=== PATIENT | female | born 1950 | race American Indian/Alaskan Native ===

== ENCOUNTER 2018-07-25 12:16 | Emergency (ER) | payer MEDICARE, OTHER ==
[2018-07-25 12:30] VITALS: TEMP 97.6
[2018-07-25 14:10] LABS: BASO # 0.2 K/uL (0.0-0.2); BASO % 1.6 % (0.0-2.0); EOS # 0.1 K/uL (0.0-0.7); HEMOGLOBIN 14.4 g/dL (12.0-16.0); LYMPH # 1.7 K/uL (1.0-4.3); LYMPH % 16.1 % (20.0-40.0); MEAN CELL VOLUME 84.8 fl (81.0-99.0); MEAN CORPUSCULAR HEMOGLOBIN 27.1 pg (27.0-31.0); MEAN PLATELET VOLUME 9.1 fl (7.2-11.7); MONO # 0.7 K/uL (0.0-0.8); MONO % 6.7 % (0.0-10.0); NEUT # 7.9 K/uL (1.8-7.0); NEUT % 74.6 % (50.0-75.0); RBC 5.32 Mil/uL (3.80-5.20); RED CELL DISTRIBUTION WIDTH 17.4 % (11.5-14.5); WHITE BLOOD COUNT 10.5 K/uL (4.8-10.8)
[2018-07-25 14:12] LABS: VENOUS BLOOD GAS PCO2 67 mmHg (40-60); VENOUS BLOOD GAS PO2 25 mm/Hg (30-55); VENOUS BLOOD PH 7.33 (7.32-7.43)
[2018-07-25 14:15] LABS: PROTHROMBIN TIME 11.1 Seconds (9.8-13.1)
[2018-07-25 14:18] LABS: PARTIAL THROMBOPLASTIN TIME 28.8 Seconds (25.6-37.1)
[2018-07-25 14:27] LABS: BLOOD UREA NITROGEN 13 mg/dl (7-17); CALCIUM 9.4 mg/dL (8.4-10.2); GFR NON-AFRICAN AMERICAN > 60
[2018-07-25 14:38] LABS: B-TYPE NATRIURETIC PEPTIDE 91.8 pg/ml (0-900)
--- NOTE | 2018-07-25 14:38 | RAD ---
Date of service: 07/25/2018 HISTORY: possible admission COMPARISON: Chest radiograph dated 06/19/2015. FINDINGS: LUNGS: Low lung volumes. No active pulmonary disease. PLEURA: No significant pleural effusion identified, no pneumothorax apparent. CARDIOVASCULAR: Normal. OSSEOUS STRUCTURES: Unchanged. VISUALIZED UPPER ABDOMEN: Normal. OTHER FINDINGS: None. IMPRESSION: No active disease.
[2018-07-25 14:52] VITALS: O2SAT 98
--- NOTE | 2018-07-25 14:59 | ED PDOC ---
HPI: Chest Pain Time Seen by Provider: 07/25/18 13:09 Chief Complaint (Nursing): Shortness Of Breath Chief Complaint (Provider): Chest Pain History Per: Patient History/Exam Limitations: no limitations Onset/Duration Of Symptoms: Days (x1) Current Symptoms Are (Timing): Still Present Additional Complaint(s): 45 year old female, with a past medical history of diabetes, COPD, and HTN, presenting for evaluation of feeling of racing heart and chest pain since this morning. Patient states for the last couple of weeks shes been having these symptoms on and off. She reports following up with her PMD, Dr. Gates, where she had a cardiac echo, but is unsure of the results. Patient also reports that since starting her hypertension medications 2 weeks ago, she has experienced left calf pain and swelling. Patient states she had an US of the leg, but is unsure of the results. Otherwise, patient states she is compliant with her medications and follow up visits. Patient denies any fevers, coughs, nausea, vomiting, and known allergies. PMD: Dr. Gates Past Medical History Reviewed: Historical Data, Nursing Documentation, Vital Signs Vital Signs: Last Vital Signs Temp 97.6 F 07/25/18 12:20 Pulse 89 07/25/18 17:17 Resp 19 07/25/18 17:17 BP 127/64 07/25/18 17:17 Pulse Ox 98 07/25/18 17:17 - Medical History PMH: Asthma, COPD, Diabetes, HTN, Hypothyroidism Denies: HIV - Surgical History Surgical History: - Family History Family History: States: Unknown Family Hx - Home Medications Home Medications: Ambulatory Orders Medication Instructions Recorded RX: Levothyroxine [Synthroid] 100 mcg PO DAILY 06/19/15 RX: Rifaximin [Xifaxan] 550 mg PO DAILY 06/19/15 Ergocalciferol (Vitamin D2) 50,000 iu PO QWK #4 cap 06/20/15 [Vitamin D] Metformin Hydrochloride/Mindi 1 ter PO QD7 #0 ter 06/20/15 [Janumet Xr 1000 mg-50 mg] Promethazine [Phenergan Syrup] 5 ml PO Q6H #0 dose 06/20/15 oxyCODONE/Acetaminophen [Percocet 1 tab PO Q6 PRN #20 tab 05/18/16 5/325 mg Tab] - Allergies Allergies/Adverse Reactions: Allergies Allergy/AdvReac Type Severity Reaction Status Date / Time No Known Allergies Allergy Verified 06/19/15 04:23 Review of Systems ROS Statement: Except As Marked, All Systems Reviewed And Found Negative Constitutional: Negative for: Fever Cardiovascular: Positive for: Chest Pain Respiratory: Negative for: Cough Gastrointestinal: Negative for: Nausea, Vomiting Musculoskeletal: Positive for: Leg Pain (left calf) Physical Exam - Reviewed Nursing Documentation Reviewed: Yes Vital Signs Reviewed: Yes - Physical Exam Appears: Positive for: Well (pleasant, sitting on stretcher), Non-toxic, No Acute Distress Head Exam: Positive for: ATRAUMATIC, NORMAL INSPECTION, NORMOCEPHALIC Skin: Positive for: Normal Color, Warm, Dry. Negative for: Rash Eye Exam: Positive for: EOMI, Normal appearance, PERRL ENT: Positive for: Normal ENT Inspection Neck: Positive for: Normal, Painless ROM, Supple Cardiovascular/Chest: Positive for: Regular Rate, Rhythm. Negative for: Murmur Respiratory: Positive for: Normal Breath Sounds (clear to auscultation). Nega tive for: Respiratory Distress Gastrointestinal/Abdominal: Positive for: Normal Exam, Soft. Negative for: Tenderness Back: Positive for: Normal Inspection. Negative for: L CVA Tenderness, R CVA Tenderness Extremity: Positive for: Normal ROM, Calf Tenderness (left calf mildly swollen compared to right with 1+ pitting edema; (+) pain on left calf squeeze; (-) pain on right calf squeeze) Neurologic/Psych: Positive for: Alert, Oriented. Negative for: Motor/Sensory Deficits - Laboratory Results Result Diagrams: 07/25/18 13:10 07/25/18 13:10 - ECG O2 Sat by Pulse Oximetry: 98 (RA) Pulse Ox Interpretation: Normal Medical Decision Making Medical Decision Makin Plan: Workup for cardiac vs pulmonary etiology of chest pain. DVT US study ordered based on exam, cardiac risk factors, and DVT risk factors. Will reassess patient. Pt with BL LE ultrasound normal. Troponin WNL. EKG NSR and unchanged. CT chest shows no signs of PE. Pt will follow up with PMD and captain of guards. Pt encouraged to continue taking home medications as prescribed by PMD. Return parameters discussed with the patient. Scribe Attestation: Documented by Blane Crockett, acting as a scribe for Halle Vinson MD. Provider Scribe Attestation: All medical record entries made by the Scribe were at my direction and personally dictated by me. I have reviewed the chart and agree that the record accurately reflects my personal performance of the history, physical exam, medical decision making, and the department course for this patient. I have also personally directed, reviewed, and agree with the discharge instructions and disposition. Disposition - Clinical Impression Clinical Impression: Palpitations, Atypical chest pain - Disposition Disposition: Routine/Home Disposition Time: 19:07 Condition: IMPROVED Additional Instructions: Follow up with primary medical doctor and captain of guards regarding palpitations. Your EKGs, chest xray, cat-scan, and leg vein studies showed not abnormality suggesting no new heart problems, no blood clots in the legs, and no pulmonary embolism. If symptoms return including chest pain, trouble breathing, fever, swelling or other new symptoms, please return to the emergency department. Instructions: Chest Pain That Is Not Caused by the Heart (DC), Chest Pain (DC), Palpitations (DC) Forms: [employer] (Bulgarian)
[2018-07-25 15:03] VITALS: RESP 19
--- NOTE | 2018-07-25 16:05 | US ---
Date of service: 07/25/2018 PROCEDURE: Bilateral lower extremity venous duplex Doppler. HISTORY: leg pain with CP and tachycardia COMPARISON: None available. TECHNIQUE: Bilateral common femoral, superficial femoral, popliteal and posterior tibial veins were evaluated. Flow was assessed with color Doppler, compressibility, assessment of phasic flow and augmentation response. FINDINGS: COMMON FEMORAL VEIN: Right CFV: Unremarkable. Left CFV: Unremarkable. SUPERFICIAL FEMORAL VEIN: Right SFV: Unremarkable. Left SFV: Unremarkable. POPLITEAL VEIN: Right Popliteal: Unremarkable. Left Popliteal: Unremarkable. POSTERIOR TIBIAL VEIN: Right PTV: Unremarkable. Left PTV: Unremarkable. OTHER FINDINGS: None. IMPRESSION: No evidence of deep venous thrombosis.
[2018-07-25] MEDS ORDERED: Sodium Chloride 0.9% 50 ML IV ONE (16:43)
[2018-07-25] MEDS ORDERED: Iodixanol 320 MG/ML 100 ML BOTTLE IV ONE (16:43)
[2018-07-25 17:18] VITALS: BP 127/64; PULSE 89
--- NOTE | 2018-07-25 18:43 | CT ---
Date of service: 07/25/2018 PROCEDURE: CT Chest with contrast (Pulmonary Angiogram) HISTORY: sob, palpitations, tachycardia COMPARISON: CT angiography of the pulmonary arteries performed 01/19/2011. TECHNIQUE: Axial computed tomography images were obtained of the chest in the pulmonary arterial phase of enhancement. Coronal and sagittal reformatted images were created and reviewed. Intravenous contrast dose: 95 mL Visipaque 320 Radiation dose: Total exam DLP = 304.0 mGy-cm. This CT exam was performed using one or more of the following dose reduction techniques: Automated exposure control, adjustment of the mA and/or kV according to patient size, and/or use of iterative reconstruction technique. FINDINGS: PULMONARY ARTERIES: Suboptimal opacification of the pulmonary arteries. No gross central pulmonary embolism. AORTA: No acute findings. Common origin of the brachiocephalic and left common carotid arteries. No thoracic aortic aneurysm. LUNGS: Unremarkable. No nodule, mass or pulmonary consolidation. PLEURAL SPACES: Unremarkable. No effusion or pneumothorax. HEART: Unremarkable. No cardiomegaly. No significant pericardial effusion. LYMPH NODES: No lymphadenopathy. BONES, CHEST WALL: Unremarkable. No fracture or destructive lesion OTHER FINDINGS: Unremarkable. IMPRESSION: Suboptimal opacification of the pulmonary arteries. No gross central pulmonary embolism. No focal consolidation or pleural effusion.
--- NOTE | 2018-07-25 23:02 | CARD ---
APPROVED REPORT Date of service: 07/25/2018 EKG Measurement Heart [id number] <Conclusion> Sinus tachycardia with premature atrial complexes Otherwise normal ECG
== END 2018-07-25 19:29 | disposition home or self-care (01) ==
LOC: H.ER 12:16
DX: R00.2 Palpitations (principal); R07.9 Chest pain, unspecified; E11.9 Type 2 diabetes mellitus without complications; I10 Essential (primary) hypertension; J44.9 Chronic obstructive pulmonary disease, unspecified; E03.9 Hypothyroidism, unspecified
CPT/HCPCS: 71045; 71275; 80048; 82803; 83880; 84484; 85025; 85610; 85730; 86850; 86900; 93005; 93970; 96374; 99284; J2405; Q9967

== ENCOUNTER 2018-10-15 10:29 | Inpatient (IN) | payer MEDICARE, OTHER ==
[2018-10-15 10:43] VITALS: BMI 44.6
--- NOTE | 2018-10-15 11:12 | ED PDOC ---
HPI: SOB/CHF/COPD Time Seen by Provider: 10/15/18 10:50 Chief Complaint (Provider): Cough, chest pain History Per: Patient History/Exam Limitations: no limitations Onset/Duration Of Symptoms: Other (over a week) Current Symptoms Are (Timing): Still Present Additional Complaint(s): 67 year old female, with a past medical history of COPD and asthma, presents to the ED complaining of cough, chest pain, and right sided back pain. Patient reports worsening of symptoms. She states she saw her doctor for symptoms and was prescribed cough medicine and trelegy for COPD. Denies calf pain, fever, smoking, recent travel, or prolonged bus or plane ride. PMD: Dr. Baires Past Medical History Reviewed: Historical Data, Nursing Documentation, Vital Signs Vital Signs: Last Vital Signs Temp 96 F L 10/15/18 10:41 Pulse 103 H 10/15/18 10:41 Resp BP 120/81 10/15/18 10:41 Pulse Ox 95 10/15/18 10:41 - Medical History PMH: Asthma, COPD, Diabetes, HTN, Hypothyroidism Denies: HIV - Surgical History Surgical History: Other surgeries: Thydroidectomy - Family History Family History: States: Unknown Family Hx - Social History Current smoker - smoking cessation education provided: No - Home Medications Home Medications: Ambulatory Orders Medication Instructions Recorded Levothyroxine [Synthroid] 100 mcg PO DAILY 06/19/15 Ergocalciferol (Vitamin D2) 50,000 iu PO QWK #4 cap 06/20/15 [Vitamin D] Cyanocobalamin (Vitamin B-12) 500 mcg PO DAILY 10/15/18 [Vitamin B-12] Fluticasone/Umeclidin/Vilanter 1 puff PO BID PRN 10/15/18 [Trelegy Ellipta 100-62.5-25] - Allergies Allergies/Adverse Reactions: Allergies Allergy/AdvReac Type Severity Reaction Status Date / Time No Known Allergies Allergy Verified 06/19/15 04:23 Review of Systems ROS Statement: Except As Marked, All Systems Reviewed And Found Negative Constitutional: Negative for: Fever Cardiovascular: Positive for: Chest Pain Respiratory: Positive for: Cough, Wheezing Musculoskeletal: Positive for: Back Pain (right sided). Negative for: Other (calf pain) Physical Exam - Reviewed Nursing Documentation Reviewed: Yes Vital Signs Reviewed: Yes - Physical Exam Appears: Positive for: In Acute Distress (mild acute distress and anxious) Head Exam: Positive for: ATRAUMATIC, NORMOCEPHALIC Skin: Positive for: Normal Color, Warm, Dry Eye Exam: Positive for: Normal appearance Neck: Positive for: Normal, Painless ROM Cardiovascular/Chest: Positive for: Regular Rate, Rhythm Respiratory: Positive for: Other (Shallow breath). Negative for: Wheezing, Respiratory Distress Gastrointestinal/Abdominal: Positive for: Normal Exam, Soft. Negative for: Tenderness Extremity: Negative for: Pedal Edema, Swelling Neurologic/Psych: Positive for: Alert. Negative for: Motor/Sensory Deficits - Laboratory Results Result Diagrams: 10/15/18 12:07 10/15/18 12:40 - ECG O2 Sat by Pulse Oximetry: 95 (RA) Pulse Ox Interpretation: Normal Medical Decision Making Medical Decision Making: Initial Impression: Asthma, COPD exacerbation Initial Plan: --ECG --CMP --CBC --Chest X-ray --Albuterol 3mL INH --Peak flow Scribe Attestation: Documented by Lance Silva acting as a scribe for Alissa Cronin MD. Provider Scribe Attestation: All medical record entries made by the Scribe were at my direction and personally dictated by me. I have reviewed the chart and agree that the record accurately reflects my personal performance of the history, physical exam, medical decision making, and the department course for this patient. I have also personally directed, reviewed, and agree with the discharge instructions and disposition. patient still coughing and has decreased air entry. Case d/w Dr. Baires. Advised that patient would likely benefit from at least 2 nights of admission. Disposition - Clinical Impression Clinical Impression: COPD (chronic obstructive pulmonary disease), Asthma exacerbation - Patient ED Disposition Is Patient to be Admitted: Yes Doctor Will See Patient In The: Hospital - Disposition Disposition: Transfer of Care Disposition Time: 13:10 Condition: FAIR - Pt Status Changed To: Hospital Disposition Of: Inpatient - Admit Certification Admit to Inpatient:: After my assessment, the patient will require hospitalization for at least two midnights. This is because of the severity of symptoms shown, intensity of services needed, and/or the medical risk in this p atient being treated as an outpatient. - POA Present On Arrival: None
[2018-10-15] MEDS ORDERED: Albuterol-Ipratrop 3 mg / 0.5 (3 ml) UD INH ONE ×4 (11:15→15:00)
[2018-10-15] MEDS ORDERED: Albuterol-Ipratrop 3 mg / 0.5 (3 ml) UD ONE (11:51)
[2018-10-15 12:11] LABS: BASO # 0.1 K/uL (0.0-0.2); BASO % 0.6 % (0.0-2.0); EOS # 0.1 K/uL (0.0-0.7); EOS % 1.3 % (0.0-4.0); LYMPH # 1.3 K/uL (1.0-4.3); LYMPH % 13.3 % (20.0-40.0); MEAN CELL VOLUME 83.9 fl (81.0-99.0); MEAN CORPUSCULAR HEMOGLOBIN 26.7 pg (27.0-31.0); MEAN CORPUSCULAR HGB CONC 31.8 g/dL (33.0-37.0); MEAN PLATELET VOLUME 8.8 fl (7.2-11.7); MONO # 0.5 K/uL (0.0-0.8); MONO % 4.9 % (0.0-10.0); NEUT # 7.8 K/uL (1.8-7.0); NEUT % 79.9 % (50.0-75.0); NRBC % 0.1 % (0.0-0.0); RBC 5.25 Mil/uL (3.80-5.20); RED CELL DISTRIBUTION WIDTH 17.9 % (11.5-14.5); WHITE BLOOD COUNT 9.8 K/uL (4.8-10.8)
[2018-10-15 12:58] LABS: ALBUMIN 3.9 g/dL (3.5-5.0); ALT/SGPT 21 U/L (9-52); AST/SGOT 27 U/L (14-36); BLOOD UREA NITROGEN 11 mg/dl (7-17); CALCIUM 9.2 mg/dL (8.4-10.2); GFR NON-AFRICAN AMERICAN > 60
[2018-10-15] MEDS ORDERED: Albuterol-Ipratrop 3 mg / 0.5 (3 ml) UD INH STA (14:50)
--- NOTE | 2018-10-15 16:39 | RAD ---
Date of service: 10/15/2018 HISTORY: cough COMPARISON: Chest radiograph 07/25/2018. FINDINGS: LUNGS: Low pulmonary volume reiterated. No acute infiltrate bilaterally. PLEURA: No significant pleural effusion identified, no pneumothorax apparent. CARDIOVASCULAR: No aortic atherosclerotic calcification present. Normal cardiac size. No pulmonary vascular congestion. OSSEOUS STRUCTURES: No significant abnormalities. VISUALIZED UPPER ABDOMEN: Normal. OTHER FINDINGS: None. IMPRESSION: No interval acute cardiopulmonary disease appreciated.
[2018-10-15] MEDS: Albuterol-Ipratrop 3 mg / 0.5 (3 ml) UD INH SCH (19:11)
[2018-10-15] MEDS: Insulin Lispro (humaLOG) 100 Units/ml Inj SC SCH (22:11)
[2018-10-16] MEDS: Albuterol-Ipratrop 3 mg / 0.5 (3 ml) UD INH SCH ×4 (01:02→19:17)
[2018-10-16] MEDS: Levothyroxine 100 MCG TAB PO SCH (05:32)
[2018-10-16] MEDS: Insulin Lispro (humaLOG) 100 Units/ml Inj SC SCH ×4 (09:20→22:00)
[2018-10-16] MEDS: CYANOCOBALAMIN 500 MCG TAB PO SCH (09:22)
[2018-10-16] MEDS: Promethazine DM 12.5 mg-30 mg/10 ml Syrup PO PRN (09:25)
--- NOTE | 2018-10-16 10:50 | CP.PCM.PN ---
Subjective - Date & Time of Evaluation Date of Evaluation: 10/16/18 Time of Evaluation: 10:53 - Subjective Subjective: 67 YR OLD OBESE FEMALE WHO IS REFERRED FOR PULMONARY EVALUATION BECAUSE OF SHORTNESS OF BREATH WITH PLEURITIC CHEST PAINS X SEVERAL DAYS.SHE BLAMES SYMPTOMS ON RECENT FLU SHOT AND CHANGE OF BLOOD PRESSURE MEDS. PT HAS A HISTORY OF HYPOTHYROIDISM,COPD AND HYPERTENSION Objective - Vital Signs/Intake and Output Vital Signs (last 24 hours): Temp Pulse Resp BP Pulse Ox 97.6 F 83 20 141/84 97 10/16/18 08:21 10/16/18 08:21 10/16/18 08:21 10/16/18 09:18 10/16/18 08:21 - Medications Medications: Current Medications Albuterol/Ipratropium (Duoneb 3 Mg/0.5 Mg (3 Ml) Ud) 3 ml INH RQ6 [facility] Last Admin: 10/16/18 07:03 Dose: 3 ml Cyanocobalamin (Vitamin B12) 500 mcg PO DAILY [facility] Last Admin: 10/16/18 09:22 Dose: 500 mcg Diltiazem HCl (Cardizem) 120 mg PO DAILY [facility] Last Admin: 10/16/18 09:18 Dose: 120 mg Ergocalciferol (Drisdol 50,000 Intl Units Cap) 1 cap PO QWK [facility] Famotidine (Pepcid) 40 mg PO HS [facility] Last Admin: 10/15/18 21:54 Dose: 40 mg Insulin Human Lispro (Humalog) 0 units SC ACHS [facility]; Protocol Last Admin: 10/16/18 09:20 Dose: 2 u Levothyroxine Sodium (Synthroid) 100 mcg PO DAILY@0630 [facility] Last Admin: 10/16/18 05:32 Dose: 100 mcg Methylprednisolone (Solu-Medrol) 125 mg IVP Q8@0100,0900,1700 [facility] Promethazine HCl/Dextromethorphan (Phenergan Dm Syrup) 10 ml PO Q6 PRN PRN Reason: Cough Last Admin: 10/16/18 09:25 Dose: 10 ml - Labs Labs: 10/15/18 12:07 10/15/18 12:40 - Constitutional Appears: Non-toxic - Head Exam Head Exam: ATRAUMATIC, NORMAL INSPECTION, NORMOCEPHALIC - Eye Exam Eye Exam: EOMI, Normal appearance, PERRL Pupil Exam: NORMAL ACCOMODATION, PERRL - ENT Exam ENT Exam: Mucous Membranes Moist, Normal Exam - Neck Exam Neck Exam: Full ROM, Normal Inspection. absent: Lymphadenopathy - Respiratory Exam Respiratory Exam: Decreased Breath Sounds, Prolonged Expiratory Phase, Rales, Wheezes, NORMAL BREATHING PATTERN - Cardiovascular Exam Cardiovascular Exam: REGULAR RHYTHM, +S1, +S2. absent: Murmur - GI/Abdominal Exam GI & Abdominal Exam: Soft, Normal Bowel Sounds. absent: Tenderness - Rectal Exam Rectal Exam: NORMAL INSPECTION - Extremities Exam Extremities Exam: Full ROM, Normal Capillary Refill, Normal Inspection. absent: Joint Swelling, Pedal Edema - Back Exam Back Exam: NORMAL INSPECTION - Neurological Exam Neurological Exam: Alert, Awake, CN II-XII Intact, Normal Gait, Oriented x3 - Psychiatric Exam Psychiatric exam: Normal Affect, Normal Mood - Skin Skin Exam: Dry, Intact, Normal Color, Warm Assessment and Plan - Assessment and Plan (Free Text) Assessment: ACUTE EXACERBATION OF COPD HTN OBESITY MUCUS PLUGGING OF AIRWAYS HYPOTHYROIDISM Plan: WILL CONTINUE O2,BRONCHODILATORS.IV STEROIDS ADD MUCOMIST TO HELP EXPECTORATE SPUTUM ADD EMPERIC IV ANTIBIOTIC TO TREAT SUPERIMPOSED PULMONARY INFECTION
[2018-10-16] MEDS ORDERED: Sodium Chloride 3% for Inhalation 4 ML VIAL.NEB IH PRN (10:55)
[2018-10-16] MEDS ORDERED: methylPREDNISolone 40 MG in Sodium Chloride 0.9% 50 ML IV SCH (17:45)
--- NOTE | 2018-10-16 19:03 | CARD ---
APPROVED REPORT Date of service: 10/15/2018 EKG Measurement Heart [id number] <Conclusion> Sinus tachycardia Otherwise normal ECG
[2018-10-16] MEDS: Acetylcysteine 20% Inhal Soln (4ml) INH SCH (19:16)
[2018-10-17] MEDS: MethylPREDNISolone 40 mg Vial IVP SCH ×3 (00:52→16:56)
[2018-10-17] MEDS: Albuterol-Ipratrop 3 mg / 0.5 (3 ml) UD INH SCH ×4 (01:36→19:16)
[2018-10-17] MEDS: Levothyroxine 100 MCG TAB PO SCH (06:03)
[2018-10-17] MEDS: Acetylcysteine 20% Inhal Soln (4ml) INH SCH ×2 (07:56→19:16)
[2018-10-17] MEDS: CYANOCOBALAMIN 500 MCG TAB PO SCH (08:42)
[2018-10-17] MEDS: Insulin Lispro (humaLOG) 100 Units/ml Inj SC SCH ×4 (08:43→22:00)
--- NOTE | 2018-10-17 09:22 | CP.PCM.PN ---
Subjective - Date & Time of Evaluation Date of Evaluation: 10/17/18 Time of Evaluation: 09:21 - Subjective Subjective: sob improved begining to cough up some sputum Objective - Vital Signs/Intake and Output Vital Signs (last 24 hours): Temp Pulse Resp BP Pulse Ox 97.5 F L 81 18 144/81 98 10/17/18 07:39 10/17/18 08:41 10/17/18 07:39 10/17/18 08:41 10/17/18 07:39 - Medications Medications: Current Medications Acetylcysteine (Acetylcysteine 20%) 2 ml INH RBID [facility] Last Admin: 10/17/18 07:56 Dose: 2 ml Albuterol/Ipratropium (Duoneb 3 Mg/0.5 Mg (3 Ml) Ud) 3 ml INH RQ6 [facility] Last Admin: 10/17/18 07:56 Dose: 3 ml Cyanocobalamin (Vitamin B12) 500 mcg PO DAILY [facility] Last Admin: 10/17/18 08:42 Dose: 500 mcg Diltiazem HCl (Cardizem) 120 mg PO DAILY [facility] Last Admin: 10/17/18 08:41 Dose: 120 mg Ergocalciferol (Drisdol 50,000 Intl Units Cap) 1 cap PO QWK [facility] Famotidine (Pepcid) 40 mg PO HS [facility] Last Admin: 10/16/18 22:31 Dose: 40 mg Insulin Human Lispro (Humalog) 0 units SC ACHS [facility]; Protocol Last Admin: 10/17/18 08:43 Dose: 2 u Levothyroxine Sodium (Synthroid) 100 mcg PO DAILY@0630 [facility] Last Admin: 10/17/18 06:03 Dose: 100 mcg Methylprednisolone (Solu-Medrol) 40 mg IVP Q8 [facility] Last Admin: 10/17/18 08:42 Dose: 40 mg Montelukast Sodium (Singulair) 10 mg PO HS [facility] Last Admin: 10/16/18 22:31 Dose: 10 mg Promethazine HCl/Dextromethorphan (Phenergan Dm Syrup) 10 ml PO Q6 PRN PRN Reason: Cough Last Admin: 10/16/18 09:25 Dose: 10 ml - Labs Labs: 10/15/18 12:07 10/15/18 12:40 - Constitutional Appears: No Acute Distress - Head Exam Head Exam: ATRAUMATIC, NORMAL INSPECTION, NORMOCEPHALIC - Eye Exam Eye Exam: EOMI, Normal appearance, PERRL Pupil Exam: NORMAL ACCOMODATION, PERRL - ENT Exam ENT Exam: Mucous Membranes Moist, Normal Exam - Neck Exam Neck Exam: Full ROM, Normal Inspection. absent: Lymphadenopathy - Respiratory Exam Respiratory Exam: Prolonged Expiratory Phase, Wheezes, NORMAL BREATHING PATTERN - Cardiovascular Exam Cardiovascular Exam: REGULAR RHYTHM, +S1, +S2. absent: Murmur - GI/Abdominal Exam GI & Abdominal Exam: Soft, Normal Bowel Sounds. absent: Tenderness - Rectal Exam Rectal Exam: NORMAL INSPECTION - Extremities Exam Extremities Exam: Full ROM, Normal Capillary Refill, Normal Inspection. absent: Joint Swelling, Pedal Edema - Back Exam Back Exam: NORMAL INSPECTION - Neurological Exam Neurological Exam: Alert, Awake, CN II-XII Intact, Normal Gait, Oriented x3 - Psychiatric Exam Psychiatric exam: Normal Affect, Normal Mood - Skin Skin Exam: Dry, Intact, Normal Color, Warm Assessment and Plan - Assessment and Plan (Free Text) Assessment: asthma/copd improving mucus plugging of airways Plan: continue current rx
[2018-10-17] MEDS: Enoxaparin 40 mg Syringe SC SCH (16:55)
[2018-10-17] MEDS: Promethazine DM 12.5 mg-30 mg/10 ml Syrup PO PRN (16:57)
[2018-10-18] MEDS: MethylPREDNISolone 40 mg Vial IVP SCH ×4 (00:51→21:21)
[2018-10-18] MEDS: Albuterol-Ipratrop 3 mg / 0.5 (3 ml) UD INH SCH ×4 (01:12→19:19)
[2018-10-18] MEDS: Levothyroxine 100 MCG TAB PO SCH (05:43)
[2018-10-18 05:53] LABS: HEMOGLOBIN 13.7 g/dL (12.0-16.0); MEAN CELL VOLUME 83.9 fl (81.0-99.0); MEAN CORPUSCULAR HEMOGLOBIN 26.3 pg (27.0-31.0); MEAN CORPUSCULAR HGB CONC 31.4 g/dL (33.0-37.0); RBC 5.21 Mil/uL (3.80-5.20); WHITE BLOOD COUNT 22.1 K/uL (4.8-10.8)
[2018-10-18 06:59] LABS: BLOOD UREA NITROGEN 26 mg/dl (7-17); CALCIUM 9.2 mg/dL (8.4-10.2); GFR NON-AFRICAN AMERICAN > 60
[2018-10-18] MEDS: Acetylcysteine 20% Inhal Soln (4ml) INH SCH ×2 (07:54→19:19)
[2018-10-18] MEDS: Insulin Lispro (humaLOG) 100 Units/ml Inj SC SCH ×4 (08:08→21:56)
[2018-10-18] MEDS: Enoxaparin 40 mg Syringe SC SCH (08:09)
[2018-10-18] MEDS: CYANOCOBALAMIN 500 MCG TAB PO SCH (08:10)
--- NOTE | 2018-10-18 08:40 | CP.PCM.PN ---
Subjective - Date & Time of Evaluation Date of Evaluation: 10/18/18 Time of Evaluation: 08:42 - Subjective Subjective: STILL C/O PULMONARY CONGESTION SOB IMPROVING STILL COUGHING Objective - Vital Signs/Intake and Output Vital Signs (last 24 hours): Temp Pulse Resp BP Pulse Ox 97.9 F 92 H 22 148/95 H 97 10/18/18 08:19 10/18/18 08:19 10/18/18 08:19 10/18/18 08:19 10/18/18 08:19 - Medications Medications: Current Medications Acetylcysteine (Acetylcysteine 20%) 2 ml INH RBID [facility] Last Admin: 10/18/18 07:54 Dose: 2 ml Albuterol/Ipratropium (Duoneb 3 Mg/0.5 Mg (3 Ml) Ud) 3 ml INH RQ6 [facility] Last Admin: 10/18/18 07:54 Dose: 3 ml Azithromycin (Zithromax) 500 mg PO DAILY [facility]; Protocol Last Admin: 10/18/18 08:10 Dose: 500 mg Cyanocobalamin (Vitamin B12) 500 mcg PO DAILY [facility] Last Admin: 10/18/18 08:10 Dose: 500 mcg Diltiazem HCl (Cardizem) 120 mg PO DAILY [facility] Last Admin: 10/18/18 08:08 Dose: 120 mg Enoxaparin Sodium (Lovenox) 40 mg SC DAILY [facility]; Protocol Last Admin: 10/18/18 08:09 Dose: 40 mg Ergocalciferol (Drisdol 50,000 Intl Units Cap) 1 cap PO QWK [facility] Famotidine (Pepcid) 40 mg PO HS [facility] Last Admin: 10/17/18 21:55 Dose: 40 mg Insulin Human Lispro (Humalog) 0 units SC ACHS [facility]; Protocol Last Admin: 10/18/18 08:08 Dose: 2 units Levothyroxine Sodium (Synthroid) 100 mcg PO DAILY@0630 [facility] Last Admin: 10/18/18 05:43 Dose: 100 mcg Methylprednisolone (Solu-Medrol) 40 mg IVP Q12 [facility] Montelukast Sodium (Singulair) 10 mg PO HS [facility] Last Admin: 10/17/18 21:55 Dose: 10 mg Promethazine HCl/Dextromethorphan (Phenergan Dm Syrup) 10 ml PO Q6 PRN PRN Reason: Cough Last Admin: 10/17/18 16:57 Dose: 10 ml - Labs Labs: 10/18/18 05:40 10/18/18 05:40 - Constitutional Appears: No Acute Distress - Head Exam Head Exam: ATRAUMATIC, NORMAL INSPECTION, NORMOCEPHALIC - Eye Exam Eye Exam: EOMI, Normal appearance, PERRL Pupil Exam: NORMAL ACCOMODATION, PERRL - ENT Exam ENT Exam: Mucous Membranes Moist, Normal Exam - Neck Exam Neck Exam: Full ROM, Normal Inspection. absent: Lymphadenopathy - Respiratory Exam Respiratory Exam: Decreased Breath Sounds, Prolonged Expiratory Phase, Rales, Wheezes, NORMAL BREATHING PATTERN - Cardiovascular Exam Cardiovascular Exam: REGULAR RHYTHM, +S1, +S2. absent: Murmur - GI/Abdominal Exam GI & Abdominal Exam: Soft, Normal Bowel Sounds. absent: Tenderness - Rectal Exam Rectal Exam: NORMAL INSPECTION - Extremities Exam Extremities Exam: Full ROM, Normal Capillary Refill, Normal Inspection. absent: Joint Swelling, Pedal Edema - Back Exam Back Exam: NORMAL INSPECTION - Neurological Exam Neurological Exam: Alert, Awake, CN II-XII Intact, Normal Gait, Oriented x3 - Psychiatric Exam Psychiatric exam: Normal Affect, Normal Mood - Skin Skin Exam: Dry, Intact, Normal Color, Warm Assessment and Plan - Assessment and Plan (Free Text) Assessment: ACUTE EXAC OF COPD HTN MORBID OBESITY MUCUS PLUGGING OF AIRWAYS Plan: CONTINUE CURRENT RX TAPER STEROIDS
--- NOTE | 2018-10-18 15:07 | CP.PCM.PN ---
Subjective - Date & Time of Evaluation Date of Evaluation: 10/18/18 Time of Evaluation: 11:30 - Subjective Subjective: Pt seen/evaluated at bedside with Dr. Gates; no acute events overnight. On nasal canula, still gets short of breath while speaking long sentences. Otherwise, no acute events overnight, no chest pain, tolerating diet. Objective - Vital Signs/Intake and Output Vital Signs (last 24 hours): Temp Pulse Resp BP Pulse Ox 97.9 F 92 H 22 148/95 H 97 10/18/18 08:19 10/18/18 08:19 10/18/18 08:19 10/18/18 08:19 10/18/18 08:19 - Medications Medications: Current Medications Acetylcysteine (Acetylcysteine 20%) 2 ml INH RBID [facility] Last Admin: 10/18/18 07:54 Dose: 2 ml Albuterol/Ipratropium (Duoneb 3 Mg/0.5 Mg (3 Ml) Ud) 3 ml INH RQ6 [facility] Last Admin: 10/18/18 13:42 Dose: 3 ml Azithromycin (Zithromax) 500 mg PO DAILY [facility]; Protocol Last Admin: 10/18/18 08:10 Dose: 500 mg Cyanocobalamin (Vitamin B12) 500 mcg PO DAILY [facility] Last Admin: 10/18/18 08:10 Dose: 500 mcg Diltiazem HCl (Cardizem) 120 mg PO DAILY [facility] Last Admin: 10/18/18 08:08 Dose: 120 mg Enoxaparin Sodium (Lovenox) 40 mg SC DAILY [facility]; Protocol Last Admin: 10/18/18 08:09 Dose: 40 mg Ergocalciferol (Drisdol 50,000 Intl Units Cap) 1 cap PO QWK [facility] Famotidine (Pepcid) 40 mg PO HS [facility] Last Admin: 10/17/18 21:55 Dose: 40 mg Insulin Human Lispro (Humalog) 0 units SC ACHS [facility]; Protocol Last Admin: 10/18/18 12:16 Dose: 6 units Levothyroxine Sodium (Synthroid) 100 mcg PO DAILY@0630 [facility] Last Admin: 10/18/18 05:43 Dose: 100 mcg Methylprednisolone (Solu-Medrol) 40 mg IVP Q12 [facility] Last Admin: 10/18/18 09:21 Dose: Not Given Montelukast Sodium (Singulair) 10 mg PO HS [facility] Last Admin: 10/17/18 21:55 Dose: 10 mg Promethazine HCl/Dextromethorphan (Phenergan Dm Syrup) 10 ml PO Q6 PRN PRN Reason: Cough Last Admin: 10/17/18 16:57 Dose: 10 ml - Labs Labs: 10/18/18 05:40 10/18/18 05:40 - Constitutional Appears: Non-toxic - Head Exam Head Exam: NORMAL INSPECTION - Respiratory Exam Respiratory Exam: Decreased Breath Sounds (equal bilaterally), Prolonged Expiratory Phase, Wheezes, NORMAL BREATHING PATTERN - Cardiovascular Exam Cardiovascular Exam: REGULAR RHYTHM, +S1, +S2 - GI/Abdominal Exam GI & Abdominal Exam: Soft. absent: Tenderness Additional comments: obese - Extremities Exam Extremities Exam: absent: Calf Tenderness - Neurological Exam Neurological Exam: Alert, Awake, Oriented x3 - Skin Skin Exam: Dry, Warm Assessment and Plan - Assessment and Plan (Free Text) Assessment: 67 yo F with COPD, hypertension, hypothyroidism, obesity, admitted due to COPD exacerbation. Plan: - Pulm consult - Dr. Seymour, recs appreciated - Continue steroids, taper, now 40 mg Q12 - Continue with duoneb treatments, azithromycin, montelukast, acetylcysteine - Continue with antihypertesive (diltiazem) - Continue with levothyroxine - Six min walk test - Pepcid for GI prophylasix - Lovenox for DVT prophylaxis
[2018-10-19] MEDS: Albuterol-Ipratrop 3 mg / 0.5 (3 ml) UD INH SCH ×3 (01:07→13:15)
[2018-10-19] MEDS: Promethazine DM 12.5 mg-30 mg/10 ml Syrup PO PRN ×2 (01:29→09:42)
[2018-10-19] MEDS: Levothyroxine 100 MCG TAB PO SCH (05:56)
[2018-10-19] MEDS: Insulin Lispro (humaLOG) 100 Units/ml Inj SC SCH (07:04)
[2018-10-19] MEDS: Acetylcysteine 20% Inhal Soln (4ml) INH SCH (08:00)
[2018-10-19 09:12] VITALS: BP 152/95; PULSE 80; RESP 20; TEMP 98; O2SAT 100
[2018-10-19] MEDS: Enoxaparin 40 mg Syringe SC SCH (09:42)
[2018-10-19] MEDS: CYANOCOBALAMIN 500 MCG TAB PO SCH (09:44)
[2018-10-19] MEDS: MethylPREDNISolone 40 mg Vial IVP SCH (09:47)
--- NOTE | 2018-10-19 10:13 | CP.PCM.PN ---
Subjective - Date & Time of Evaluation Date of Evaluation: 10/19/18 Time of Evaluation: 10:14 - Subjective Subjective: CLINICALLY IMPROVED WITH RX Objective - Vital Signs/Intake and Output Vital Signs (last 24 hours): Temp Pulse Resp BP Pulse Ox 98.0 F 80 20 152/95 H 100 10/19/18 08:00 10/19/18 09:43 10/19/18 08:00 10/19/18 09:43 10/19/18 08:00 - Medications Medications: Current Medications Acetylcysteine (Acetylcysteine 20%) 2 ml INH RBID [facility] Last Admin: 10/19/18 08:00 Dose: 2 ml Albuterol/Ipratropium (Duoneb 3 Mg/0.5 Mg (3 Ml) Ud) 3 ml INH RQ6 [facility] Last Admin: 10/19/18 08:00 Dose: 3 ml Azithromycin (Zithromax) 500 mg PO DAILY [facility]; Protocol Last Admin: 10/19/18 09:43 Dose: 500 mg Cyanocobalamin (Vitamin B12) 500 mcg PO DAILY [facility] Last Admin: 10/19/18 09:44 Dose: 500 mcg Diltiazem HCl (Cardizem) 120 mg PO DAILY [facility] Last Admin: 10/19/18 09:43 Dose: 120 mg Enoxaparin Sodium (Lovenox) 40 mg SC DAILY [facility]; Protocol Last Admin: 10/19/18 09:42 Dose: 40 mg Ergocalciferol (Drisdol 50,000 Intl Units Cap) 1 cap PO QWK [facility] Famotidine (Pepcid) 40 mg PO HS [facility] Last Admin: 10/18/18 21:21 Dose: 40 mg Insulin Human Lispro (Humalog) 0 units SC ACHS [facility]; Protocol Last Admin: 10/19/18 07:04 Dose: Not Given Levothyroxine Sodium (Synthroid) 100 mcg PO DAILY@0630 [facility] Last Admin: 10/19/18 05:56 Dose: 100 mcg Methylprednisolone (Solu-Medrol) 40 mg IVP Q12 [facility] Last Admin: 10/19/18 09:47 Dose: 40 mg Montelukast Sodium (Singulair) 10 mg PO HS [facility] Last Admin: 10/18/18 21:21 Dose: 10 mg Promethazine HCl/Dextromethorphan (Phenergan Dm Syrup) 10 ml PO Q6 PRN PRN Reason: Cough Last Admin: 10/19/18 09:42 Dose: 10 ml - Labs Labs: 10/18/18 05:40 10/18/18 05:40 - Constitutional Appears: No Acute Distress - Head Exam Head Exam: ATRAUMATIC, NORMAL INSPECTION, NORMOCEPHALIC - Eye Exam Eye Exam: EOMI, Normal appearance, PERRL Pupil Exam: NORMAL ACCOMODATION, PERRL - ENT Exam ENT Exam: Mucous Membranes Moist, Normal Exam - Neck Exam Neck Exam: Full ROM, Normal Inspection. absent: Lymphadenopathy - Respiratory Exam Respiratory Exam: Clear to Ausculation Bilateral, Prolonged Expiratory Phase, NORMAL BREATHING PATTERN - Cardiovascular Exam Cardiovascular Exam: REGULAR RHYTHM, +S1, +S2. absent: Murmur - GI/Abdominal Exam GI & Abdominal Exam: Soft, Normal Bowel Sounds. absent: Tenderness - Rectal Exam Rectal Exam: NORMAL INSPECTION - Extremities Exam Extremities Exam: Full ROM, Normal Capillary Refill, Normal Inspection. absent: Joint Swelling, Pedal Edema - Back Exam Back Exam: NORMAL INSPECTION - Neurological Exam Neurological Exam: Alert, Awake, CN II-XII Intact, Normal Gait, Oriented x3 - Psychiatric Exam Psychiatric exam: Normal Affect, Normal Mood - Skin Skin Exam: Dry, Intact, Normal Color, Warm Assessment and Plan - Assessment and Plan (Free Text) Assessment: COPD IMPROVED O2 SAT 84% ON ROOM AIR Plan: OK TO D/C FROM [facility] WILL NEED HOME O2 AT 2L/M CONTINOUS ON D/C HOME
--- NOTE | 2018-10-19 13:33 | CP.PCM.DIS ---
Provider - Provider Date of Admission: 10/15/18 13:39 Attending physician: Bruno Gates MD Primary care physician: Dr. Gates Consults: 10/15/18 18:49 Pulmonology Consult Routine Comment: Consulting Provider: Elroy Seymour I Consulting Physician: Elroy Seymour I Reason for Consult: Cough, SOB Time Spent in preparation of Discharge (in minutes): 30 Diagnosis - Discharge Diagnosis (1) Asthma exacerbation Status: Acute (2) COPD (chronic obstructive pulmonary disease) Status: Chronic Hospital Course - Lab Results Lab Results: Micro Results 10/17/18 06:26 Sputum Gram Stain - Final 10/17/18 06:26 Sputum Sputum Culture - Final NORMAL ORAL AYAN Most Recent Lab Values WBC 22.1 K/uL (4.8-10.8) H D 10/18/18 05:40 RBC 5.21 Mil/uL (3.80-5.20) H 10/18/18 05:40 Hgb 13.7 g/dL (12.0-16.0) 10/18/18 05:40 Hct 43.7 % (34.0-47.0) 10/18/18 05:40 MCV 83.9 fl (81.0-99.0) 10/18/18 05:40 MCH 26.3 pg (27.0-31.0) L 10/18/18 05:40 MCHC 31.4 g/dL (33.0-37.0) L 10/18/18 05:40 RDW 17.0 % (11.5-14.5) H 10/18/18 05:40 Plt Count 274 K/uL (130-400) 10/18/18 05:40 MPV 8.8 fl (7.2-11.7) 10/15/18 12:07 Neut % (Auto) 79.9 % (50.0-75.0) H 10/15/18 12:07 Lymph % (Auto) 13.3 % (20.0-40.0) L 10/15/18 12:07 [place] % (Auto) 4.9 % (0.0-10.0) 10/15/18 12:07 Eos % (Auto) 1.3 % (0.0-4.0) 10/15/18 12:07 Baso % (Auto) 0.6 % (0.0-2.0) 10/15/18 12:07 Neut # (Auto) 7.8 K/uL (1.8-7.0) H 10/15/18 12:07 Lymph # (Auto) 1.3 K/uL (1.0-4.3) 10/15/18 12:07 [place] # (Auto) 0.5 K/uL (0.0-0.8) 10/15/18 12:07 Eos # (Auto) 0.1 K/uL (0.0-0.7) 10/15/18 12:07 Baso # (Auto) 0.1 K/uL (0.0-0.2) 10/15/18 12:07 Sodium 139 mmol/l (132-148) 10/18/18 05:40 Potassium 4.9 MMOL/L (3.6-5.0) 10/18/18 05:40 Chloride 97 mmol/L (98-107) L 10/18/18 05:40 Carbon Dioxide 33 mmol/L (22-30) H 10/18/18 05:40 Anion Gap 14 (10-20) 10/18/18 05:40 BUN 26 mg/dl (7-17) H 10/18/18 05:40 Creatinine 0.9 mg/dl (0.7-1.2) 10/18/18 05:40 Est GFR ( Amer) > 60 10/18/18 05:40 Est GFR (Non-Af Amer) > 60 10/18/18 05:40 POC Glucose (mg/dL) 176 mg/dL (65-110) H 10/19/18 10:51 Random Glucose 180 mg/dL (65-105) H 10/18/18 05:40 Calcium 9.2 mg/dL (8.4-10.2) 10/18/18 05:40 Total Bilirubin 0.4 mg/dl (0.2-1.3) 10/15/18 12:40 AST 27 U/L (14-36) 10/15/18 12:40 ALT 21 U/L (9-52) 10/15/18 12:40 Alkaline Phosphatase 89 U/L (38-126) 10/15/18 12:40 Total Protein 7.8 G/DL (6.3-8.2) 10/15/18 12:40 Albumin 3.9 g/dL (3.5-5.0) 10/15/18 12:40 Globulin 3.8 gm/dL (2.2-3.9) 10/15/18 12:40 Albumin/Globulin Ratio 1.0 (1.0-2.1) 10/15/18 12:40 - Hospital Course Hospital Course: 67 year old F with COPD and asthma, admitted for exacerbation of COPD/asthma. Treated with IV steroids (started with 125mg Q8 hrs, tapered to 40 mg Q12 hrs) and nebulizer treatments, with improvement of symptoms. She was seen by strainer cleaner Dr. Seymour, recommendations appreciated and followed. While she has improved, she has shortness of breath on exertion, and she has trouble speaking long sentences. She would benefit from home O2 services (as also recommended by strainer cleaner) and visiting nurse services for O2 management and other medication management as well. Pt seen/evaluated with Dr. Gates this morning. She was in no acute distress with no acute events overnight. She was wearing nasal canula, and was conversing with family at bedside. She is stable for d/c today with prescription for home O2, medrol pack, azithromycin to complete treatment course. Discharge Exam - Head Exam Head Exam: ATRAUMATIC, NORMAL INSPECTION, NORMOCEPHALIC - Eye Exam Eye Exam: Normal appearance - ENT Exam ENT Exam: Mucous Membranes Moist - Respiratory Exam Respiratory Exam: NORMAL BREATHING PATTERN - Cardiovascular Exam Cardiovascular Exam: REGULAR RHYTHM - GI/Abdominal Exam GI & Abdominal Exam: Soft - Neurological Exam Neurological exam: Alert, Oriented x3 - Psychiatric Exam Psychiatric exam: Normal Mood - Skin Skin Exam: Warm Discharge Plan - Discharge Medications Prescriptions: Azithromycin [Zithromax] 500 mg PO DAILY #5 tab diltiaZEM [Cardizem] 120 mg PO DAILY #30 tab Methylprednisolone [Medrol Dose Pack (21 tabs)] 4 mg PO DAILY #21 mg Montelukast [Singulair] 10 mg PO HS #30 tab - Follow Up Plan Condition: FAIR Disposition: HOME/ ROUTINE Instructions: Exacerbation of COPD (DC), Asthma (DC) Additional Instructions: follow up with primary MD 1week Referrals: Bruno Gates MD [Family Provider] - Elroy Seymour MD [Staff Provider] -
[2018-10-21] MEDS ORDERED: Ergocalciferol 50,000 Intl Units Cap PO SCH (16:15)
== END 2018-10-19 17:04 | disposition home or self-care (01) | DRG 202 ==
LOC: H.ER 10:29 → H.ERHOLD 13:39 → H.MEDSURG1 15:15
PROVIDERS: ADMIT Family Medicine; ATTEND Family Medicine
DX: J45.901 Unspecified asthma with (acute) exacerbation (principal); J44.1 Chronic obstructive pulmonary disease with (acute) exacerbation; Z68.41 Body mass index [BMI] 40.0-44.9, adult; E66.01 Morbid (severe) obesity due to excess calories; E03.9 Hypothyroidism, unspecified; I10 Essential (primary) hypertension; E11.9 Type 2 diabetes mellitus without complications; Z79.890 Hormone replacement therapy; T17.990A Other foreign object in respiratory tract, part unspecified in causing asphyxiation, initial encounter